=== PATIENT | female | born 1945 | race Caucasian/White ===

== ENCOUNTER 2019-06-05 10:51 | Day surgery (SDC) | payer MEDICARE, SELFPAY ==
--- NOTE | 2019-06-04 19:21 | HP.PCM_ITS ---
History and Physical Date of Admission: 06/05/19 HISTORY AND PHYSICAL ? Ping Mayfield 1945 ? REFERRING PHYSICIAN: Yunier Unger MD ? CHIEF COMPLAINT: Consult (Colonoscopy) ? HPI: The patient is a 73 year old female referred for endoscopy. Ping notes a recent change in bowel habits with fecal urgency and occasional loss of stool control. Aggravating factors include caffeine, potatoes. She does note that her metformin dosage was recently doubled prior to symptom onset. Denies recent travel or sick contacts. Patient denies any blood in stools or black tarry stools. Denies family history of colon issues. Patient notes some intermittent left lower quadrant discomfort which she states she has had for years, denies any aggravating or alleviating factors. Denies any fever or chills. ? Ping has undergone prior endoscopy in 2006, records not currently available for review. ? Patient's past medical history significant for type II diabetes mellitus, hyperlipidemia, GERD, fibromyalgia. She follows with Dr. Unger for her chronic medical conditions. ? ? PAST MEDICAL HISTORY PAST MEDICAL HISTORY Diagnosis Date ? Anxiety with depression 02/28/2019 ? Arthritis 02/28/2019 ? Diabetic eye exam (HCC) 02/28/2019 ? Last exam: 04/19/2018 ? Fibromyalgia 04/12/2019 ? Per old recrds ? GERD without esophagitis 02/28/2019 ? Hyperlipidemia, mixed 02/28/2019 ? Overactive bladder 02/28/2019 ? Type 2 diabetes mellitus without complication, without long-term current use of insulin (HCC) 02/28/2019 ? ? PAST SURGICAL HISTORY PAST SURGICAL HISTORY Procedure Laterality Date ? COLONOSCOPY ? 12/21/2006 ? D&C ? ? ? HYSTERECTOMY ? ? ? ovaries as well. no cancer ? TONSILLECTOMY HX ? CURRENT MEDICATIONS Current Outpatient Medications Medication Sig ? metFORMIN (GLUCOPHAGE) 500 mg tablet Take 2 tablets by mouth twice daily with meals. . ? glimepiride (AMARYL) 4 mg tablet Take 1 tablet by mouth daily with breakf ast. ? pravastatin (PRAVACHOL) 40 mg tablet Take 1 tablet by mouth daily at bedtime. ? omeprazole (PRILOSEC) 20 mg capsule Take 2 capsules by mouth daily before breakfast. 1/2 hr before meal. ? fenofibrate nanocrystallized (TRICOR) 145 mg tablet Take 1 tablet by mouth once daily. ? PARoxetine (PAXIL) 40 mg tablet Take 1 tablet by mouth once daily. ? meloxicam (MOBIC) 7.5 mg tablet Take 1 tablet by mouth once daily. Take with food. ? tolterodine ER (DETROL LA) 4 mg 24 hr capsule Take 1 capsule by mouth once daily. ? No current facility-administered medications for this visit. ? ? ALLERGIES: Patient has no known allergies. ? PERSONAL HISTORY: SOCIAL HISTORY Social History ? Tobacco Use ? Smoking status: Never Smoker ? Smokeless tobacco: Never Used Substance Use Topics ? Alcohol use: Not Currently ? Drug use: Not on file ? FAMILY HISTORY: FAMILY HISTORY FAMILY HISTORY Problem Relation Age of Onset ? Stroke Father ? ? cerebral aneurysm ? Breast Cancer Sister ? ? Alzheimer's Disease No Family History ? ? Colon Cancer No Family History ? ? Prostate Cancer No Family History ? ? Ovarian cancer No Family History ? ? Coronary Artery Disease No Family History ? ? Diabetes No Family History ? ? Hyperlipidemia No Family History ? ? Hypertension No Family History ? ? Kidney Disease No Family History ? ? Seizures No Family History ? ? Thyroid No Family History ? ? ? REVIEW OF SYMPTOMS: The review of systems data was entered by the nurse and reviewed by me ? Nursing Notes: Umer Casillas LPN 04/24/2019 9:40 AM Signed REVIEW OF SYSTEMS: General: The patient denies fatigue, denies weight loss, denies weight gain, denies feeling hot, and denies feelings of cold. Eyes: The patient denies glaucoma, NOTES eye injury/surgery, wears glasses or contacts. Ear/Nose/Throat: The patient denies allergies, denies hayfever, denies ear infections, and denies bloody noses. Cardiovascular: The patient denies chest pain, denies heart disease, NOTES high blood pressure,denies cardiac stent, denies prior heart attack, denies irregular heart beat, denies high cholesterol, denies poor circulation, denies heart failure, other cardiac issues, denies claudication, denies cold feet, denies peripheral arterial stent. Respiratory: The patient denies tuberculosis, denies pneumonia, denies frequent cough, denies pulmonary embolism, denies shortness of breath, and denies coughing up blood. Gastrointestinal: The patient denies difficulty swallowing, NOTES acid reflux, denies ulcers, denies vomiting, denies jaundice/hepatitis, denies gallbladder problems, denies black or tarry stools, denies hemorrhoids, denies bleeding from rectum, denies diverticulitis, denies constipation, NOTES diarrhea, NOTES loss of stool control, and denies hernias. Kidney/Bladder: The patient denies kidney stones, denies urine infections, and denies bloody urine. Skin: The patient denies a history of skin cancer, denies bleeding/changing moles, and denies a history of skin rash. Neurologic: The patient denies a history of epilepsy/convulsions, denies headaches, denies head/spinal injuries, and denies stroke/TIA. Psychiatric: The patient denies psychiatric medications, NOTES depression, and denies voices, denies substance abuse. Endocrine: The patient denies thyroid disorders, NOTES diabetes, and denies hormonal problems. Hematologic: The patient denies a history of bruising, denies bleeding, and denies anemia, denies blood clots. Infections: The patient NOTES a history of measles and mumps, denies rheumatic fever, and denies sexually transmitted diseases. Musculoskeletal: The patient denies back pain/injury, denies back problems, denies sciatica, denies knee/foot trouble, denies arthritis, or denies gout. ? ? When was patient's last Mammogram screening? N/A ? Last Colonoscopy: Unknown ? Umer Casillas LPN I have confirmed and edited as necessary, the PFSH and ROS obtained by others. ? PHYSICAL EXAMINATION: ? General: The patient is 73 year old female, well nourished, well hydrated in no acute distress. The patient is oriented to time, place, and person. ? VITALS: Blood pressure 172/93, pulse 86, temperature 36.3 ?C (97.3 ?F), weight 66.1 kg (145 lb 12.8 oz), SpO2 98 %. Body mass index is 25.42 kg/m?. ? HEENT: Normal cephalic, ataumatic, pupils are equally round, sclera are anicteric, mucous membranes are moist, oropharynx is clear. Neck has no masses, asymmetry or lymphadenopathy. ? Respiratory: Clear to auscultation and percussion. Normal respiratory excursion and pattern. ? Cardiac: Examination is regular rate and rhythm. Normal S1/S2 ? Abdominal exam: Soft, nontender, with no palpable masses. No hepatosplenomegaly. No palpable hernias. ? Extremities: no clubbing, cyanosis or edema. No adenopathy. ? LABORATORY VALUES: As Noted ? RADIOLOGIC STUDIES: As Noted ? IMPRESSION: change in bowel habits, fecal urgency, abdominal discomfort, GERD. ? PLAN: I have reviewed my findings with the surgeon. Will plan for upper and lower endoscopy. We discussed the risks and benefits of the planned endoscopy. I have informed the patient that complications can occur including failure to complete the endoscopy and perforation. The patient had the opportunity to ask questions concerning the planned endoscopy. My staff has also explained the procedure to the patient in understandable terms and has given the patient printed material concerning the procedure. The patient freely consents to surgery. ? I plan to use Golytely bowel preparation-patient has Rx ? We will plan for Monitored Anesthetic Care. ? ? Diagnoses: (R19.4) Change in bowel habits (primary encounter diagnosis) (R15.2) Fecal urgency (K21.9) Gastroesophageal reflux disease, esophagitis presence not specified ? ? Ellen Finley PA-C
[2019-06-05 11:13] VITALS: BP 140/80; PULSE 92; RESP 15; TEMP 36.8; O2SAT 99; BMI 24.5
[2019-06-05] MEDS: Lactated Ringers 1,000 ML 75 ML IV (11:21)
[2019-06-05 11:41] LABS: Bedside Glucose 260 mg/dL (70-110)
--- NOTE | 2019-06-05 12:30 | EGD_PTH ---
PATIENT: JERE MORRIS LOC: EN U#:[id number] AGE/SX: 73/F ROOM: RE06/05/[address]: Dr. Aysha Horan MD : 1945 BED: DIS: 06/05/2019 SPEC #: [id number] RECD: 06/05/19 13:33 STATUS: FARIDA RE #: [id number] MEAGAN: 06/05/19 12:[address]: Aysha Horan DEPT: SURGICAL PATHOLOGY RECD BY: Osman Dawson ENTERED: 06/06/19 06:51 SP TYPE: EGD BIOPSY ALYSE DR: Dr. Yunier Unger MD Tissues: A - Duodenum, NOS B - Gastric mucous membrane C - Gastric mucous membrane D - COLON BIOPSY Procedures: Trichrome (control) Special Stain Group II Surgery Specimen Level IV HEADER OPERATION: Colonoscopy, EGD ([facility]) PRE-OP DIAGNOSIS: GERD, abdomen pain, fecal urgency, change in bowel habits TISSUE SUBMITTED: A - Second portion of duodenum biopsy, B - Antrum biopsy for histo and H.?pylori, C - Gastric polyp biopsy, D - Random colonic biopsy MICROSCOPIC DIAGNOSIS A. Second portion of duodenum, biopsy: No significant pathologic change. B. Gastric antrum, biopsy: Mild chronic gastritis. See comment. C. Gastric polyp, biopsy: Suggestive of fundic gland polyp. D. Colon, random biopsy: Focal acute colitis. See comment. AM:radha 06/07/19 COMMENT B. The results of immunohistochemistry for Helicobacter pylori will be reported separately ([id number]). D. Rare cryptitis and a single crypt abscess are identified. Trichrome stain with matched control does not reveal a thickened basal plate. Clinical correlation is suggested. MICROSCOPIC DESCRIPTION Slides are reviewed. GROSS DESCRIPTION A - Received in fixative is one container labeled with the patient's name and designated second portion duodenum biopsy. The specimen consists of two irregular fragments of light coyle soft tissue that in aggregate measure 0.5 x 0.2 x 0.1 cm. The specimen is totally submitted in one cassette. B - Received in fixative is one container labeled with the patient's name and designated antrum biopsy. The specimen consists of two irregular fragments of light coyle soft tissue that in aggregate measure 0.5 x 0.2 x 0.1 cm. The specimen is totally submitted in one cassette. C - Received in fixative is one container labeled with the patient's name and designated gastric polyp biopsy. The specimen consists of one irregular fragment of light coyle soft tissue that measures 0.7 x 0.2 x 0.1 cm. Also present in the container is a minute fragment of coyle soft tissue measuring 0.1 cm in greatest dimension. The specimen is totally submitted in one cassette. D - Received in fixative is one container labeled with the patient's name and designated random colonic biopsy. The specimen consists of multiple irregular fragments of light coyle soft tissue that in aggregate measure 1 x 1 x 0.1 cm. The specimen is totally submitted in one cassette. / SJ:rg 06/06/19 TC:2 CPT: 18618 x4, 50279
--- NOTE | 2019-06-05 12:30 | IMM_PTH ---
PATIENT: JERE MORRIS LOC: EN U#:[id number] AGE/SX: 73/F ROOM: RE06/05/[address]: Dr. Aysha Horan MD : 1945 BED: DIS: 06/05/2019 SPEC #: [id number] RECD: 06/06/19 09:22 STATUS: FARIDA REQ #: [id number] MEAGAN: 06/05/19 12:[address]: Aysha Horan DEPT: IMMUNOHISTOCHEMISTRY RECD BY: Priti Goff ENTERED: 06/06/19 09:23 SP TYPE: IMMUNO OTHR DR: Dr. Yunier Unger MD Tissues: B - Stomach, NOS Procedures: H Pylori (initial) PHYSICIAN & INSTITUTION [place] [id number] SPECIMEN INFORMATION: Tissue Source: B - Antrum biopsy Clinical Info: GERD, abdomen pain, fecal urgency, change in bowel habits Specimen Number: [id number] CPT code: 94167 METHODOLOGY: Deparaffinized sections of prefer/formalin-fixed tissue or PAP/DQ stained slides are incubated with monoclonal/polyclonal antibodies/oligonucleotide probes. Localization is made via biotin free immunoperoxidase method. Appropriate controls are performed and reacted as expected. Results on target cell population are indicated in the following table: RESULTS: ANTIBODY / CLONE RESULT Block B H Pylori (polyclonal) negative These tests were developed and their performance characteristics determined by [facility]. They may not have been cleared or approved by the U.S. Food and Drug Administration. The FDA has determined that such clearance or approval is not necessary. The above immunohistochemical/dualISH markers are ordered and reviewed by the Pathologist. INTERPRETATION: B. Antrum biopsy: Negative for Helicobacter pylori organisms. AM:radha 06/07/19
[2019-06-05 13:20] VITALS: BP 125/86; BP 140/80; PULSE 87; RESP 16; TEMP 36.6; O2SAT 95
[2019-06-05 13:25] VITALS: BP 140/80; BP 153/96; PULSE 85; RESP 17; O2SAT 100
--- NOTE | 2019-06-05 13:25 | OP.CCLET_ITS ---
06/05/2019 Yunier Unger MD Re : Upper GI endoscopy procedure for Ping Morejon Dear Dr. Unger This procedure was performed on Wednesday, June 05, 2019. My impressions and recommendations are as follows: Impressions : - Normal first portion of the duodenum and second portion of the duodenum. Biopsied. - A few gastric polyps. Biopsied. - Small hiatal hernia. Recommendations : - Discharge patient to home (ambulatory). - Resume previous diet. - Continue present medications. - Await pathology results. - My office will telephone with pathology results in 1-2 weeks My findings are described in the full procedure note, which is enclosed. If I can be of further assistance, please feel free to contact me at Doctor phone number(s): , Work: . Sincerely, MD Aysha Pinto MD 06/05/2019 1:24:42 PM This report has been signed electronically.
--- NOTE | 2019-06-05 13:25 | OP.EGD_ITS ---
Patient Name: Ping Morejon Procedure Date: 06/05/2019 11:52 AM Date of : 1945 Age: 73 Procedure: Upper GI endoscopy Indications: Dyspepsia, Suspected esophageal reflux Providers: Aysha Horan MD Referring MD: Aysha Horan MD Medicines: See the Anesthesia note for documentation of the administered medications Patient Profile: Refer to note in patient chart for documentation of history and physical. Complications: No immediate complications. Procedure: Pre-Anesthesia Assessment: - see anesthesia note After obtaining informed consent, the endoscope was passed under direct vision. Throughout the procedure, the patient's blood pressure, pulse, and oxygen saturations were monitored continuously. The gastroscope was introduced through the mouth, and advanced to the second part of duodenum. The upper GI endoscopy was accomplished without difficulty. The patient tolerated the procedure well. Scope In: 12:43:40 PM Scope Out: 12:50:47 PM Total Procedure Duration Time 0 hours 7 minutes 7 seconds Findings: The first portion of the duodenum and second portion of the duodenum were normal. Biopsies were taken with a cold forceps for histology. Verification of patient identification for the specimen was done by the nurse. Estimated blood loss was minimal. A few 5 to 10 mm pedunculated polyps with no bleeding and no stigmata of recent bleeding were found in the stomach. There were benign appearing gastric fundic polyps. Biopsies were taken with a cold forceps for histology. Verification of patient identification for the specimen was done by the nurse. Estimated blood loss was minimal. Biopsies were taken of the antrum of the stomach with a cold forceps for histology/H pylori. Verification of patient identification for the specimen was done by the nurse. Estimated blood loss was minimal. A small hiatal hernia was present. The GE junction appeared normal.. Impression: - Normal first portion of the duodenum and second portion of the duodenum. Biopsied. - A few gastric polyps. Biopsied. - Small hiatal hernia. Recommendation: - Discharge patient to home (ambulatory). - Resume previous diet. - Continue present medications. - Await pathology results. - My office will telephone with pathology results in 1-2 weeks Procedure Code(s): --- Professional --- 09170, Esophagogastroduodenoscopy, flexible, transoral; with biopsy, single or multiple Diagnosis Code(s): --- Professional --- K31.7, Polyp of stomach and duodenum K44.9, Diaphragmatic hernia without obstruction or gangrene R10.13, Epigastric pain CPT copyright 2017 [employer]. All rights reserved. The codes documented in this report are preliminary and upon sample stitcher review may be revised to meet current compliance requirements. MD Aysha Pinto MD 06/05/2019 1:24:42 PM This report has been signed electronically. Number of Addenda: 0 Note Initiated On: 06/05/2019 11:52 AM
[2019-06-05 13:30] VITALS: BP 140/80; BP 150/90; PULSE 78; RESP 16; O2SAT 98
--- NOTE | 2019-06-05 13:32 | OP.COLON_ITS ---
Patient Name: Ping Morejon Procedure Date: 06/05/2019 12:51 PM Date of : 1945 Age: 73 Procedure: Colonoscopy Indications: Change in bowel habits Providers: Aysha Horan MD Referring MD: Aysha Horan MD Medicines: See the Anesthesia note for documentation of the administered medications Patient Profile: Refer to note in patient chart for documentation of history and physical. Last Colonoscopy: 2006. Complications: No immediate complications. Procedure: Pre-Anesthesia Assessment: - see anesthesia note After I obtained informed consent, the scope was passed under direct vision. Throughout the procedure, the patient's blood pressure, pulse, and oxygen saturations were monitored continuously. The colonoscope was introduced through the anus and advanced to the cecum, identified by appendiceal orifice and ileocecal valve. The colonoscopy was performed without difficulty. The patient tolerated the procedure well. The quality of the bowel preparation was adequate. Scope In: 12:53:36 PM Scope Withdrawal Time 0 hours 11 minutes 33 seconds Scope Out: 1:14:40 PM Total Procedure Duration Time 0 hours 21 minutes 4 seconds Findings: The perianal and digital rectal examinations were normal. Pertinent negatives include normal sphincter tone. The colon (entire examined portion) appeared normal. Biopsies for histology were taken with a cold forceps from the entire colon for evaluation of microscopic colitis. Verification of patient identification for the specimen was done by the nurse. Estimated blood loss was minimal. Impression: - The entire examined colon is normal. Biopsied. Recommendation: - Discharge patient to home (ambulatory). - Resume previous diet. - Continue present medications. - Await pathology results. - My office will telephone with pathology results in 1-2 weeks - Repeat colonoscopy in 10 years as per ACS guidelines for screening for colon cancer. Procedure Code(s): --- Professional --- 22899, Colonoscopy, flexible; with biopsy, single or multiple Diagnosis Code(s): --- Professional --- R19.4, Change in bowel habit CPT copyright 2017 [employer]. All rights reserved. The codes documented in this report are preliminary and upon corrugator helper review may be revised to meet current compliance requirements. MD Aysha Pinto MD 06/05/2019 1:32:15 PM This report has been signed electronically. Number of Addenda: 0 Note Initiated On: 06/05/2019 12:51 PM
--- NOTE | 2019-06-05 13:33 | OP.CCLET_ITS ---
06/05/2019 Yunier Unger MD Re : Colonoscopy procedure for Ping Morejon Dear Dr. Unger This procedure was performed on Wednesday, June 05, 2019. My impressions and recommendations are as follows: Impressions : - The entire examined colon is normal. Biopsied. Recommendations : - Discharge patient to home (ambulatory). - Resume previous diet. - Continue present medications. - Await pathology results. - My office will telephone with pathology results in 1-2 weeks - Repeat colonoscopy in 10 years as per ACS guidelines for screening for colon cancer. My findings are described in the full procedure note, which is enclosed. If I can be of further assistance, please feel free to contact me at Doctor phone number(s): , Work: . Sincerely, MD Aysha Pinto MD 06/05/2019 1:32:15 PM This report has been signed electronically.
[2019-06-05 13:36] VITALS: BP 140/80; BP 156/91; PULSE 76; RESP 16; TEMP 37.1; O2SAT 98
[2019-06-05 14:11] VITALS: BP 140/80
== END 2019-06-05 14:17 | disposition home or self-care (01) ==
LOC: EN 10:55 → AC 10:58
PROVIDERS: PCP Family Medicine; Referring Provider Surgery; Visit Provider Surgery
PROC: 0DJD8ZZ Inspection of Lower Intestinal Tract, Via Natural or Artificial Opening Endoscopic (ICD-10-PCS; CPT 45378; principal; 2019-06-05 12:25)
DX: K29.50 Unspecified chronic gastritis without bleeding (principal); K44.9 Diaphragmatic hernia without obstruction or gangrene; K31.7 Polyp of stomach and duodenum; K21.9 Gastro-esophageal reflux disease without esophagitis; K52.9 Noninfective gastroenteritis and colitis, unspecified; I10 Essential (primary) hypertension; E11.9 Type 2 diabetes mellitus without complications; M79.7 Fibromyalgia; F41.8 Other specified anxiety disorders; M19.90 Unspecified osteoarthritis, unspecified site; E78.00 Pure hypercholesterolemia, unspecified; N32.81 Overactive bladder; Z78.0 Asymptomatic menopausal state; Z79.84 Long term (current) use of oral hypoglycemic drugs; Z79.899 Other long term (current) drug therapy
CPT/HCPCS: 43239; 45380; 82962; 88305; 88313; 88342; J7120

== ENCOUNTER 2019-09-09 19:28 | Emergency (ER) | payer MEDICARE, SELFPAY ==
[2019-09-09 19:29] VITALS: BP 153/93; PULSE 81; RESP 15; TEMP 36.2; O2SAT 96; BMI 26.2
--- NOTE | 2019-09-09 20:32 | ED.VIS.URI ---
History of Present Illness Chief Complaint: Ear Problem Informant: Patient Onset: Weeks - 1 Context: Gradual Onset Timing: Continuous Quality: decreased hearing Location: right ear Current Severity: Moderate Maximum Severity: Moderate Worsened by: - - nothing Relieved by: - - nothing but has tried nothing Associated Symptoms: Negative for: Nasal Congestion, Headache, Sinus Pressure, Nausea, Chest Pain Narrative: Patient feels like her right ear is plugged up. She denies any pain in the ear or otorrhea. No vertigo or other neurologic symptoms. No recent injuries. No recent URI symptoms. - Past Medical History (1) Hypertension Status: Chronic (2) Hyperlipidemia Status: Chronic (3) Type 2 diabetes mellitus Status: Chronic Past Medical History - Allergies and Home Meds Allergies/Adverse Reactions: Allergies No Known Allergies Allergy (Verified 09/09/19 19:32) Primary Care Physician: Yunier Unger MD [Primary Care Provider] - Past Medical History: None Lives: Alone Smoking Status: Never smoker Review of Systems General: Denies: Chills, Fever, Sweats Eyes: Denies: Visual changes - bilaterally, Diplopia ENT: Reports: - - Decreased hearing right ear. Denies: Bilateral ear pain, Rhinorrhea, Sore throat Cardiovascular: Denies: Chest pain, Palpitations Respiratory: Denies: Dyspnea, Cough, Dyspnea on exertion Gastrointestinal: Denies: Abdominal pain, Nausea, Vomiting, Diarrhea, Melena, Hematochezia Genitourinary: Denies: Dysuria, Hematuria, Frequency Musculoskeletal: Denies: Back pain, Extremity Pain Skin: Denies: Rash, Wounds Neurological: Denies: Headache, Weakness, Numbness Physical Exam Vital Signs/Narrative: Vital Signs Temp Pulse Resp BP Pulse Ox 09/09/19 19:29 97.2 F L 81 15 153/93 H 96 Inital Vital Signs reviewed: Yes General: Well nourished, Well developed, - - Well-appearing NAD Head: Normocephalic, Atraumatic Eyes: Perrl, EOMI Ears: TM's clear - Left, - - Right TM not visible due to cerumen impaction.. Negative for: Pain with Movement of Right Tragus, Pain with Movement of Left Tragus, Right Mastoid Tenderness, Left Mastoid Tenderness Nose: Normal Inspection, No Rhinorrhea Mouth/Throat: Normal Inspection, No Posterior Erythema Neck: Supple, Nontender, No Lymphadenopathy Skin: Normal color, No rash, No Trauma Neurological: Alert, Oriented x3, Cranial nerves II-XII grossly intact, Normal Strength, Normal Sensation, Normal Gait Psychological: Normal affect, Normal Mood Diagnostic/Tx/Re-eval - Medical Decision Making We irrigated the patient's right ear, a lot of hard cerumen was removed and on reexamination she feels much better and I am able to visualize the TM, which appears intact and not infected. Patient given appropriate discharge instructions and discharged home in stable improved condition. ED Disposition - Plan for ED Patient: Disposition: Home or Assisted Living Diagnosis: Impacted cerumen, right ear Instructions: ED Cerumen Impaction Treated Referrals: Yunier Unger MD [Primary Care Provider] - As Needed
[2019-09-09 21:36] VITALS: BP 138/74; PULSE 91; RESP 16; O2SAT 98
== END 2019-09-09 21:37 | disposition home or self-care (01) ==
PROVIDERS: Emergency Provider Emergency Medicine; PCP Family Medicine
DX: H61.21 Impacted cerumen, right ear (principal); I10 Essential (primary) hypertension; E11.9 Type 2 diabetes mellitus without complications; E78.5 Hyperlipidemia, unspecified; Z79.84 Long term (current) use of oral hypoglycemic drugs; Z79.899 Other long term (current) drug therapy
CPT/HCPCS: 99283